=== PATIENT | female | born 1950 | race Caucasian/White ===

== ENCOUNTER → 2017-04-28 | Outpatient (CLI) | payer MEDICARE, OTHER ==
[~2017-04-28] MED LIST: ACE325 PO; ASPI-757 PO; AZIT-17 PO; BENZ100C4 PO; CELE-1 PO; GAB300 PO; HYDR25CA83 PO; IBUP-56 PO; IBUP200C74 PO; KET10 PO; LOR5/325 PO; LOSA50TA72 PO; OMEP-125 PO; OMEP-218 PO; PRA20 PO; PRAV10TA46 PO; PRED20TA6 PO; RANI-324 PO; TUM500 PO
[2017-04-28 09:10] LABS: PLATELET COUNT, AUTOMATED 248 K/uL (150-450)
[2017-04-28 10:22] LABS: LDL CHOLESTEROL 141 mg/dl
== END ==
LOC: LAB 08:37
PROVIDERS: ATTEND Internal Medicine
DX: N18.3 Chronic kidney disease, stage 3 (moderate) (principal); J96.11 Chronic respiratory failure with hypoxia; R79.89 Other specified abnormal findings of blood chemistry; E11.3293 Type 2 diabetes mellitus with mild nonproliferative diabetic retinopathy without macular edema, bilateral
CPT/HCPCS: 36415; 81001; 82040; 82247; 82310; 82374; 82435; 82465; 82565; 82947; 83718; 84075; 84132; 84155; 84295; 84443; 84450; 84460; 84478; 84520; 85025

== ENCOUNTER → 2017-07-27 | Outpatient (CLI) | payer MEDICARE, OTHER ==
[~2017-07-27] MED LIST changes: +ACET500T68 PO; +OMEP-137 PO; +PRAV20TA66 PO
[2017-07-27 09:01] LABS: PLATELET COUNT, AUTOMATED 221 K/uL (150-450)
== END ==
LOC: LAB 08:40
PROVIDERS: ATTEND Internal Medicine
DX: I10 Essential (primary) hypertension (principal); E78.2 Mixed hyperlipidemia
CPT/HCPCS: 36415; 82040; 82247; 82310; 82374; 82435; 82465; 82565; 82947; 83718; 84075; 84132; 84155; 84295; 84450; 84460; 84478; 84520; 85025

== ENCOUNTER → 2017-08-03 | Outpatient (CLI) | payer MEDICARE, OTHER ==
[~2017-08-03] MED LIST changes: +FLUT16SP19 NS; +ROSU20TA23 PO; +VALS160T7 PO
--- NOTE | 2017-08-03 10:05 | RADIOLOGY IMAGING REPORT ---
FACILITY: [facility] PATIENT NAME: Jenny Jimenez : 1950 MR: [id number] V: [id number] EXAM DATE: ORDERING PHYSICIAN: TEJ CORNEJO TECHNOLOGIST: Location: [facility] - [place] Patient: Jenny Jimenez : 1950 Visit/Account:[id number] Date of Sevice: 08/03/2017 Exam type: CHEST PA AND LAT History: Cough and shortness of breath for a few weeks Comparison: April 28, 2015. Findings: The lungs are free of acute effusions, infiltrates or edema. The cardiac silhouette is normal in siz e. The trachea is in midline. There are mild spondylotic changes of the thoracic spine. Surgical c lips are present right upper quadrant of abdomen. IMPRESSION: 1. No acute cardiac pulmonary process is seen Report Dictated By: Kimberli Benson MD at 08/03/2017 9:50 AM Report E-Signed By: Kimberli Benson MD at 08/03/2017 10:01 AM WSN:[email or web address]
== END ==
LOC: LAB 09:14
PROVIDERS: ATTEND Internal Medicine
DX: R05 Cough (principal)
CPT/HCPCS: 71046

== ENCOUNTER → 2017-08-10 | Outpatient (CLI) | payer MEDICARE, OTHER ==
[~2017-08-10] MED LIST changes: -RANI-324 PO; +RANI-366 PO
== END ==
LOC: RESP 01:35
PROVIDERS: ATTEND Internal Medicine
DX: R05 Cough (principal)
CPT/HCPCS: 94060; 94726; 94729

== ENCOUNTER → 2017-11-02 | Outpatient (CLI) | payer MEDICARE, OTHER ==
[2017-11-02 08:04] LABS: PLATELET COUNT, AUTOMATED 247 K/uL (150-450)
[2017-11-02 08:23] LABS: LDL CHOLESTEROL 67 mg/dl
== END ==
LOC: LAB 07:39
PROVIDERS: ATTEND Internal Medicine
DX: I10 Essential (primary) hypertension (principal); R05 Cough; E78.5 Hyperlipidemia, unspecified
CPT/HCPCS: 36415; 82040; 82247; 82310; 82374; 82435; 82465; 82565; 82947; 83718; 84075; 84132; 84155; 84295; 84443; 84450; 84460; 84478; 84520; 85025

== ENCOUNTER → 2017-11-23 | Outpatient (CLI) | payer MEDICARE, OTHER ==
[~2017-11-23] MED LIST changes: -VALS160T7 PO; +VALS160T8 PO
--- NOTE | 2017-11-23 14:43 | EKG ---
[place] [facility] [place] TASHI TORO : [id number] MR: [id number] V: [id number] EXAM DATE: ORDERING PHYSICIAN: TEJ CORNEJO TECHNOLOGIST: FREDRICK Test Reason : CHEST PAIN Blood Pressure : / mmHG Vent. Rate : 065 BPM Atrial Rate : 065 BPM P-R Int : 132 ms QRS Dur : 074 ms QT Int : 426 ms P-R-T Axes : 054 -08 054 degrees QTc Int : 443 ms Normal sinus rhythm Normal ECG No previous ECGs available Referred By: Confirmed By:
== END ==
LOC: RESP 14:35
PROVIDERS: ATTEND Internal Medicine
DX: Z02.9 Encounter for administrative examinations, unspecified (principal)

== ENCOUNTER → 2018-03-14 | Outpatient (CLI) | payer MEDICARE, OTHER ==
[~2018-03-14] MED LIST changes: -LOSA50TA72 PO; +LOSA50TA74 PO
--- NOTE | 2018-03-14 16:04 | RADIOLOGY IMAGING REPORT ---
FACILITY: [facility] PATIENT NAME: Jenny Jimenez : 1950 MR: [id number] V: [id number] EXAM DATE: ORDERING PHYSICIAN: ALEX RUIZ TECHNOLOGIST: Location: [facility] - [place], [place] Patient: Jenny Jimenez : 1950 Visit/Account:[id number] Date of Sevice: 03/14/2018 EXERCISE MYOCARDIAL PERFUSION IMAGING Single Isotope SPECT Imaging with Exercise and Gated SPECT Imaging DATE OF EXAMINATION: March 14, 2018 REQUESTING PHYSICIAN: JOSEPH INDICATION: Chest discomfort PROCEDURE: After informed consent the patient received an intravenous injection of Tc-99m sestamibi followed at the appropriate time interval by rest imaging. The patient then exercised according to the standard [place] protocol for 4 minutes achieving 5 METS. Resting heart rate was 63 bpm with a pea k heart rate of 139 bpm which is 90 % of maximal predicted heart rate for age. Blood pressure at re st was 180/100; blood pressure during exercise was 208/105. There was no chest pain during exercise. Exercise was discontinued because of fatigue. Baseline EKG demonstrates sinus rhythm. There were no EKG changes of ischemia at peak exercise. Approximately one minute and 30 seconds prior to the te rmination of exercise, the patient received an intravenous injection of Tc-99m sestamibi followed by stress imaging. DOSE of Tc-99m sestamibi: REST: 12.5 STRESS: 28.9 RAW DATA: Examination of the summed raw data revealed a excellent quality study. MYOCARDIAL PERFUSION: The tomographic images demonstrate normal myocardial perfusion without evidenc e of myocardial ischemia or infarct GATED IMAGES: The gated images demonstrate normal LV systolic performance and wall motion with LVEF 63%. IMPRESSION: 1. Adequate exercise tolerance without ischemic EKG changes noted. Hypertension throughout the test. 2. Normal myocardial perfusion study without evidence of myocardial ischemia or infarct 3. Normal LV systolic performance with LVEF 63% Report Dictated By: Polo Sidhu at 03/14/2018 3:57 PM Report E-Signed By: Polo Sidhu at 03/14/2018 4:00 PM WSN:[id number]
--- NOTE | 2018-03-14 22:08 | RT STRESS TEST REPORT ---
FACILITY: [facility] PATIENT NAME: TASHI TORO : [id number] MR: [id number] V: [id number] EXAM DATE: ORDERING PHYSICIAN: ALEX RUIZ TECHNOLOGIST: Johnathon Acquisition Time: 2018-03-14 13:52:40 Total Exercise Time: 00:04:00 Test Indications: Chest Discomfort Medications: SEE LIST Protocol: SARAVANAN 2 Max HR: 139 BPM 90% of Pred: 154 BPM Max BP: 208/105 mmHG Max Work Load: 4.6 METS Excercise stress test stopped due to achieving target heart rate and patient fatigue. Asymptomatic throughout test. Negative EKG portion of test, await imaging result. Confirmed by Suman Murry ([id number]) on 03/14/2018 10:08:02 PM Referred By: ALEX RUIZ Overread By: Suman Greene
== END ==
LOC: NUC 02:14
PROVIDERS: ATTEND Physician Assistant
DX: I10 Essential (primary) hypertension (principal)
CPT/HCPCS: 78452; 93017; A9500

== ENCOUNTER → 2018-04-05 | Outpatient (CLI) | payer MEDICARE, OTHER ==
[~2018-04-05] MED LIST changes: -LOSA50TA74 PO; +LOSA50TA80 PO
--- NOTE | 2018-04-05 16:24 | RADIOLOGY IMAGING REPORT ---
FACILITY: [facility] - [place] PATIENT NAME: TASHI TORO : [id number] MR: [id number] V: [id number] EXAM DATE: ORDERING PHYSICIAN: ALEX RUIZ TECHNOLOGIST: Kitty Wong PROCEDURE:BILATERAL DIGITAL SCREENING MAMMOGRAM WITH CAD ASSISTED INTERPRETATION & 3D TOMOSYNTHESIS COMPARISON:Prior mammograms 03/26/17, 03/04/16, 02/26/15. INDICATIONS:SCREENING FINDINGS: The breasts are heterogeneously dense which may obscure small masses. The parenchymal pattern has remained stable allowing for difference in mammographic technique & patient positioning. There is no evidence of malignant appearing mass, malignant appearing calcifications or other secondary sign of malignancy in either breast. DIAGNOSTIC CATEGORY 1--NEGATIVE. RECOMMENDATIONS: ROUTINE MAMMOGRAM AND CLINICAL EVALUATION. IMPRESSION: BIRADS 1: Negative. No significant abnormality is seen. Dictated by: Kimberli Benson M.D. on 04/05/2018 at 14:58 Transcribed by: REMY on 04/05/2018 at 15:17 Approved by: Kimberli Benson M.D. on 04/05/2018 at 16:23 [facility]
== END ==
LOC: MAMO 00:19
PROVIDERS: ATTEND Physician Assistant
DX: Z12.31 Encounter for screening mammogram for malignant neoplasm of breast (principal)
CPT/HCPCS: 77063; 77067